=== PATIENT | female | born 1995 | race Asian ===

== ENCOUNTER 2019-02-21 21:25 | Emergency (ER) | payer OTHER ==
[2019-02-21] MEDS ORDERED: fentaNYL 100 MCG/2 ML INJ IVP ONE (22:04)
[2019-02-21] MEDS ORDERED: NS 1,000 ML IV ONE (22:04)
[2019-02-21] MEDS ORDERED: ONDANSETRON 4 MG/2 ML VIAL IVP ONE (22:05)
--- NOTE | 2019-02-21 22:08 | EDPHY ---
H & P Stated Complaint: ABD PAIN, NAUSEA, GENERAL PAIN Time Seen by Provider: 02/21/19 21:54 HPI/ROS: Chief Complaint: Body aches, abdominal pain, nausea HPI: 23-year-old woman with a history of attention deficit hyperactivity disorder and depression began having general myalgias this evening. Patient states this started with pain in her back. It is bed to her extremities. She now has pain all over. It is a 9/10. She is not taking any medication for this. Has some mild nausea. Some mild shortness of breath. Now has pain in her upper abdomen. No numbness or weakness. No recent illness. No history of similar episodes in the past. No chest pain. Last menstrual. Was 2 weeks ago normal. Does not believe she is . Is on oral contraceptives. No swelling. No recent travel. No known exposures. She works as an senior property accountant. ROS: 10 systems were reviewed and were negative except those elements noted in the HPI. PMH: Depression, attention deficit hyperactivity disorder Social History: No smoking, occasional alcohol, no recreational drug use Family History: non-contributory Physical Exam: Gen: Awake, Alert, No Distress HEENT: Nose: no rhinorrhea Eyes: PERRLA, EOMI Mouth: Moist mucosa Neck: Supple, no JVD Chest: nontender, lungs clear to auscultation Heart: S1, S2 normal, no murmur Abd: Soft, non-tender, no guarding Back: no CVA tenderness, no midline tenderness Ext: no edema, non-tender Skin: no rash Neuro: CN II-XII intact, Sensation grossly intact, Strength 5/5 in bilateral upper and lower extremities - Personal History LMP (Females 10-55): 8-14 Days Ago Current Tetanus Diphtheria and Acellular Pertussis (TDAP): Yes - Medical/Surgical History Hx Asthma: No Hx Chronic Respiratory Disease: No Hx Diabetes: No Hx Cardiac Disease: No Hx Renal Disease: No Hx Cirrhosis: No Hx Alcoholism: No Hx HIV/AIDS: No Hx Splenectomy or Spleen Trauma: No Other PMH: DENIES - Social History Smoking Status: Never smoked Constitutional: Initial Vital Signs Temperature (C) 37.3 C 02/21/19 21:37 Heart Rate 96 02/21/19 21:37 Respiratory Rate 16 02/21/19 21:37 Blood Pressure 125/76 H 02/21/19 21:37 O2 Sat (%) 96 02/21/19 21:37 O2 Delivery Mode Room Air Allergies/Adverse Reactions: No Known Allergies Allergy (Unverified 02/21/19 21:36) Home Medications: Medication Instructions Recorded Citalopram 02/21/19 FOCALIN 02/21/19 Sprintec 28 Day Tablet 02/21/19 Medical Decision Making ED Course/Re-evaluation: 23-year-old female presenting with general myalgias and malaise. No focal findings on her physical exam. Laboratory evaluations are pretty unremarkable. No white count. CK is very mildly elevated, certainly no rhabdomyolysis. Urine is negative. She is not . Liver function is normal. Kidney function is normal. Sodium is mildly low but not dramatic. She is negative for influenza. Did not find focal source of infection. She is completely neurologically intact. No findings suggestive of infection. Symptoms likely consistent with viral syndrome. Will discharge continuing with fluids, over-the -counter analgesia, follow up with primary care. - Data Points Laboratory Results: Laboratory Results 02/21/19 21:58 02/21/19 21:58 02/21/19 02/21/19 02/21/19 22:20 22:20 21:58 WBC 9.21 10^3/uL 10^3/uL (3.80-9.50) RBC 4.54 10^6/uL 10^6/uL (4.18-5.33) Hgb 13.4 g/dL g/dL (12.6-16.3) Hct 39.3 % % (38.0-47.0) MCV 86.6 fL fL (81.5-99.8) MCH 29.5 pg pg (27.9-34.1) MCHC 34.1 g/dL g/dL (32.4-36.7) RDW 12.2 % % (11.5-15.2) Plt Count 269 10^3/uL 10^3/uL (150-400) MPV 9.9 fL fL (8.7-11.7) Neut % (Auto) 72.7 % % (39.3-74.2) Lymph % (Auto) 19.4 % % (15.0-45.0) [place] % (Auto) 6.4 % % (4.5-13.0) Eos % (Auto) 1.0 % % (0.6-7.6) Baso % (Auto) 0.3 % % (0.3-1.7) Nucleat RBC Rel Count 0.0 % % (0.0-0.2) Absolute Neuts (auto) 6.69 10^3/uL H 10^3/uL (1.70-6.50) Absolute Lymphs (auto) 1.79 10^3/uL 10^3/uL (1.00-3.00) Absolute Monos (auto) 0.59 10^3/uL 10^3/uL (0.30-0.80) Absolute Eos (auto) 0.09 10^3/uL 10^3/uL (0.03-0.40) Absolute Basos (auto) 0.03 10^3/uL 10^3/uL (0.02-0.10) Absolute Nucleated RBC 0.00 10^3/uL 10^3/uL (0-0.01) Immature Gran % 0.2 % % (0.0-1.1) Immature Gran # 0.02 10^3/uL 10^3/uL (0.00-0.10) Sodium Potassium Chloride Carbon Dioxide Anion Gap BUN Creatinine Estimated GFR Glucose Calcium Total Bilirubin AST ALT Alkaline Phosphatase Creatine Kinase CK-MB (CK-2) Fraction CK-MB (CK-2) % Creatine Kinase Interp Total Protein Albumin Lipase Beta HCG, Qual Urine Color PALE YELLOW Urine Appearance CLEAR Urine pH 7.0 (5.0-7.5) Ur Specific [place] 1.006 (1.002-1.030) Urine Protein NEGATIVE (NEGATIVE) Urine Ketones TRACE H (NEGATIVE) Urine Blood NEGATIVE (NEGATIVE) Urine Nitrate NEGATIVE (NEGATIVE) Urine Bilirubin NEGATIVE (NEGATIVE) Urine Urobilinogen NEGATIVE EU EU (0.2-1.0) Ur Leukocyte Esterase NEGATIVE (NEGATIVE) Urine Glucose NEGATIVE (NEGATIVE) Nasal Influenza A PCR NEGATIVE FOR FLU A (NEGATIVE) Nasal Influenza B PCR NEGATIVE FOR FLU B (NEGATIVE) 02/21/19 02/21/19 21:58 21:58 WBC RBC Hgb Hct MCV MCH MCHC RDW Plt Count MPV Neut % (Auto) Lymph % (Auto) [place] % (Auto) Eos % (Auto) Baso % (Auto) Nucleat RBC Rel Count Absolute Neuts (auto) Absolute Lymphs (auto) Absolute Monos (auto) Absolute Eos (auto) Absolute Basos (auto) Absolute Nucleated RBC Immature Gran % Immature Gran # Sodium 132 mEq/L L mEq/L (135-145) Potassium 4.0 mEq/L mEq/L (3.5-5.2) Chloride 101 mEq/L mEq/L (97-110) Carbon Dioxide 23 mEq/l mEq/l (22-31) Anion Gap 8 mEq/L mEq/L (6-14) BUN 10 mg/dL mg/dL (7-23) Creatinine 0.6 mg/dL mg/dL (0.6-1.0) Estimated GFR > 60 Glucose 90 mg/dL mg/dL (70-100) Calcium 9.7 mg/dL mg/dL (8.5-10.4) Total Bilirubin 0.5 mg/dL mg/dL (0.1-1.4) AST 34 IU/L IU/L (14-46) ALT 37 IU/L IU/L (9-52) Alkaline Phosphatase 75 IU/L IU/L (38-126) Creatine Kinase 175 IU/L H IU/L (0-156) CK-MB (CK-2) Fraction < 0.22 ng/mL ng/mL (0.00-4.55) CK-MB (CK-2) % < 0.1 % % (0.0-4.0) Creatine Kinase Interp NEGATIVE (NEGATIVE) Total Protein 6.8 g/dL g/dL (6.3-8.2) Albumin 3.9 g/dL g/dL (3.5-5.0) Lipase 74 IU/L IU/L (23-300) Beta HCG, Qual NEGATIVE Urine Color Urine Appearance Urine pH Ur Specific [place] Urine Protein Urine Ketones Urine Blood Urine Nitrate Urine Bilirubin Urine Urobilinogen Ur Leukocyte Esterase Urine Glucose Nasal Influenza A PCR Nasal Influenza B PCR Medications Given: Discontinued Medications Fentanyl (Sublimaze) 25 mcg IVP EDNOW ONE Stop: 02/21/19 22:05 Last Admin: 02/21/19 22:15 Dose: 25 mcg Sodium Chloride (Ns) 1,000 mls @ 0 mls/hr IV ONCE ONE; Wide Open PRN Reason: Protocol Stop: 02/21/19 22:05 Last Admin: 02/21/19 22:19 Dose: 1,000 mls Ketorolac Tromethamine (Toradol) 15 mg IVP EDNOW ONE Stop: 02/21/19 22:30 Last Admin: 02/21/19 22:43 Dose: 15 mg Ondansetron HCl (Zofran) 4 mg IVP EDNOW ONE Stop: 02/21/19 22:06 Last Admin: 02/21/19 22:15 Dose: 4 mg Departure - Departure Disposition: Home, Routine, Self-Care Clinical Impression: Myalgia, Viral syndrome Condition: Good Instructions: Musculoskeletal Pain (ED), Viral Syndrome (ED) Additional Instructions: Make sure to drink plenty of fluids. Pedialyte is best. Take ibuprofen, 600 mg every 8 hr. You may alternate with acetaminophen, 1000 mg every 8 hr. Follow up with primary care physician in 2-3 days for further evaluation Referrals: OMAYRA SAVAGE [Other] - As per Instructions
[2019-02-21 22:11] LABS: PLATELET COUNT 269 10^3/uL (150-400)
[2019-02-21] MEDS ORDERED: KETOROLAC 15 MG/1 ML SDV IVP ONE (22:29)
[2019-02-21 22:30] LABS: CREATINE KINASE 175 IU/L (0-156)
[2019-02-21 23:46] VITALS: BP 105/75
== END 2019-02-21 23:48 | disposition home or self-care (01) ==
DX: M79.18 Myalgia, other site (principal); B34.9 Viral infection, unspecified; E86.9 Volume depletion, unspecified
CPT/HCPCS: 96374; J1885; J2405; J3010